=== PATIENT | male | born 2000 | race Caucasian/White ===

== ENCOUNTER 2022-11-12 10:00 | Inpatient (IN) | payer OTHER ==
[~2022-11-12] VITALS: Ht 177.8 cm; Wt 69.2 kg
[2022-11-12] VITALS (48 sets, daily range): BP systolic 111–148; BP diastolic 51–94; TEMP 98.3–99.5; O2SAT 96–100
[2022-11-12] MEDS ORDERED: METOCLOPRAMIDE INJ 10MG/2ML VIAL IV ONE (10:10)
[2022-11-12] MEDS ORDERED: ISOVUE-370 76% 100ML VIAL As Ordered ONE (10:15)
[2022-11-12 10:43] LABS: BASO # 0.1 10^3/uL (0.0-0.2); BASO % 0.5 % (0.0-1.0); EOS % 0.1 % (0.0-3.0); HEMATOCRIT 45.9 % (42.0-52.0); HEMOGLOBIN 15.8 g/dl (13.5-17.5); LYMPH # 1.8 10^3/uL (1.5-5.0); MEAN CORPUSCULAR HEMOGLOBIN 29.5 pg (27.0-33.0); MEAN CORPUSCULAR HGB CONC 34.4 g/dl (32.0-36.5); MEAN CORPUSCULAR VOLUME 85.8 fl (80.0-96.0); MONO # 0.5 10^3/uL (0.0-0.8); MONO % 4.6 % (2.0-8.0); NEUTROPHILS # 7.7 10^3/uL (1.5-8.5); NEUTROPHILS % 76.5 % (36.0-66.0); PLATELET COUNT, AUTOMATED 271 10^3/uL (150-450); RED BLOOD COUNT 5.35 10^6/uL (4.30-6.10); WHITE BLOOD COUNT 10.1 10^3/uL (4.0-10.0)
[2022-11-12 10:53] LABS: INR 1.02; PROTHROMBIN TIME 13.6 SECONDS (12.5-14.5)
[2022-11-12 10:54] LABS: PARTIAL THROMBOPLASTIN TIME 29.5 SECONDS (24.8-34.2)
[2022-11-12 11:03] LABS: CK-MB VALUE MASS < 1.0 NG/ML (<3.6)
[2022-11-12 11:04] LABS: CPK CREATINE PHOSPHOKINASE 99 U/L (46-171); MB/CK RELATIVE INDEX 1.01 (< OR =4)
[2022-11-12] MEDS ORDERED: ASPIRIN 325 MG TAB PO ONE ×2 (13:45→14:35)
[2022-11-12] MEDS ORDERED: NS 1,000 ML IV ONE (14:10)
[2022-11-12] MEDS ORDERED: NS 1,000 ML IV SCH (14:35)
[2022-11-12] MEDS ORDERED: HOME MED LIST COMPLETE! XX SCH (14:45)
[2022-11-12] MEDS: CLOPIDOGREL 75 MG TAB PO SCH (15:14)
[2022-11-12 18:25] LABS: HEMOGLOBIN A1c 5.3 % (4.0-6.0)
[2022-11-12 18:32] LABS: CK-MB VALUE MASS < 1.0 NG/ML (<3.6)
[2022-11-12 18:33] LABS: BLOOD UREA NITROGEN 9 MG/DL (9-23); C REACTIVE PROTEIN QUANTITATIV < 0.40 MG/DL (<1.0); CALCIUM LEVEL 9.9 MG/DL (8.5-10.1); CARBON DIOXIDE LEVEL 27 MMOL/L (20-31); CHLORIDE LEVEL 104 MMOL/L (98-107); CPK CREATINE PHOSPHOKINASE 91 U/L (46-171); GLOMERULAR FILTRATION RATE > 60.0 (>60); GLUCOSE, FASTING 99 MG/DL (60-100); MB/CK RELATIVE INDEX 1.09 (< OR =4); POTASSIUM SERUM 4.2 MMOL/L (3.5-5.1); SODIUM LEVEL 140 MMOL/L (136-145)
[2022-11-12 18:34] LABS: RHEUMATOID FACTOR QUANT < 3.5 IU/ML (<14)
[2022-11-12 18:35] LABS: THYROID STIMULATING HORMONE 3.035 uIU/ML (0.55-4.78)
[2022-11-12 18:36] LABS: FREE T4 1.24 NG/DL (0.89-1.76)
[2022-11-12] MEDS ORDERED: PHENYLEPHRINE 10MG/ML 1ML VIAL As Ordered ONE (18:46)
[2022-11-12] MEDS ORDERED: PHENYLEPHRINE HCL INJ 50 MG in D5W 500 ML IV SCH ×2 (18:50→19:00)
[2022-11-12] MEDS: ATORVASTATIN 20 MG TAB PO SCH (21:00)
[2022-11-12] MEDS: CHLORHEXIDINE GLUCONATE 0.12 % 15ML UDC (PERIDEX ORAL RINSE) MT SCH (21:25)
[2022-11-12] MEDS ORDERED: HEPARIN SOD (PORCINE) 5000UNITS/ML 1ML VIAL/SYRINGE SQ SCH (22:00)
[2022-11-12] MEDS: NS 1,000 ML IV SCH (23:25)
[2022-11-13] VITALS (91 sets, daily range): BP systolic 107–173; BP diastolic 54–109; TEMP 98.8–100.6; O2SAT 87–100
[2022-11-13] MEDS: NS 1,000 ML IV SCH ×4 (00:58→18:22)
[2022-11-13] MEDS: PHENYLEPHRINE HCL INJ 50 MG in D5W 500 ML IV SCH ×2 (02:25→09:00)
[2022-11-13] MEDS ORDERED: ONDANSETRON 4MG 2ML VIAL IV PRN (05:30)
[2022-11-13 06:09] LABS: BASO # 0.1 10^3/uL (0.0-0.2); BASO % 0.5 % (0.0-1.0); EOS % 0.1 % (0.0-3.0); HEMATOCRIT 47.4 % (42.0-52.0); HEMOGLOBIN 16.3 g/dl (13.5-17.5); LYMPH # 3.6 10^3/uL (1.5-5.0); LYMPH % 27.1 % (24.0-44.0); MEAN CORPUSCULAR HEMOGLOBIN 29.9 pg (27.0-33.0); MEAN CORPUSCULAR HGB CONC 34.4 g/dl (32.0-36.5); MEAN CORPUSCULAR VOLUME 86.8 fl (80.0-96.0); MONO # 1.1 10^3/uL (0.0-0.8); MONO % 8.2 % (2.0-8.0); NEUTROPHILS # 8.5 10^3/uL (1.5-8.5); NEUTROPHILS % 63.5 % (36.0-66.0); PLATELET COUNT, AUTOMATED 400 10^3/uL (150-450); RED BLOOD COUNT 5.46 10^6/uL (4.30-6.10); WHITE BLOOD COUNT 13.4 10^3/uL (4.0-10.0)
[2022-11-13 06:17] LABS: ALBUMIN 4.3 G/DL (3.2-5.2); ALKALINE PHOSPHATASE 86 U/L (46-116); ALT/SGPT 12 U/L (7.0-40); AST/SGOT 9 U/L (<34); BILIRUBIN,TOTAL 1.2 MG/DL (0.3-1.2); BLOOD UREA NITROGEN 8 MG/DL (9-23); CALCIUM LEVEL 9.8 MG/DL (8.5-10.1); CARBON DIOXIDE LEVEL 26 MMOL/L (20-31); CHLORIDE LEVEL 106 MMOL/L (98-107); CK-MB VALUE MASS < 1.0 NG/ML (<3.6); CPK CREATINE PHOSPHOKINASE 90 U/L (46-171); CREATININE FOR GFR 0.92 MG/DL (0.70-1.30); GLOMERULAR FILTRATION RATE > 60.0 (>60); GLUCOSE, FASTING 114 MG/DL (60-100); MAGNESIUM LEVEL 1.8 MG/DL (1.8-2.4); MB/CK RELATIVE INDEX 1.11 (< OR =4); POTASSIUM SERUM 4.6 MMOL/L (3.5-5.1); SODIUM LEVEL 138 MMOL/L (136-145); TOTAL PROTEIN 7.6 G/DL (5.7-8.2)
[2022-11-13] MEDS: PHENYLEPHRINE HCL INJ 50 MG in D5W 495 ML IV SCH ×4 (08:30→23:29)
[2022-11-13] MEDS: CHLORHEXIDINE GLUCONATE 0.12 % 15ML UDC (PERIDEX ORAL RINSE) MT SCH (09:00)
[2022-11-13] MEDS: CLOPIDOGREL 75 MG TAB PO SCH (10:13)
[2022-11-13] MEDS: ATORVASTATIN 20 MG TAB PO SCH (10:13)
[2022-11-13] MEDS: ASPIRIN 81MG CHEW TABLET PO SCH (10:13)
[2022-11-13] MEDS ORDERED: PHENYLEPHRINE HCL INJ 50 MG in D5W 495 ML IV SCH (15:02)
[2022-11-13] MEDS ORDERED: MIDAZOLAM 5MG/ML 1ML VIAL IV SCH (16:30)
[2022-11-13] MEDS ORDERED: fentaNYL 100 MCG/2 ML INJECTION IV ONE (16:30)
[2022-11-13] MEDS ORDERED: CETACAINE SPRAY 5GM TOP ONE (16:30)
[2022-11-13] MEDS ORDERED: LIDOCAINE VISCOUS 2% SOLN 15ML UDC MT ONE (16:55)
[2022-11-14] VITALS (63 sets, daily range): BP systolic 98–170; BP diastolic 55–122; TEMP 98.1–99.6; O2SAT 85–99
[2022-11-14] MEDS: PHENYLEPHRINE HCL INJ 50 MG in D5W 495 ML IV SCH ×6 (00:05→22:15)
[2022-11-14] MEDS: NS 1,000 ML IV SCH ×3 (02:27→18:06)
[2022-11-14 06:05] LABS: BASO # 0.1 10^3/uL (0.0-0.2); BASO % 0.7 % (0.0-1.0); EOS # 0.1 10^3/uL (0.0-0.5); EOS % 0.8 % (0.0-3.0); HEMATOCRIT 47.9 % (42.0-52.0); HEMOGLOBIN 16.9 g/dl (13.5-17.5); LYMPH # 2.8 10^3/uL (1.5-5.0); LYMPH % 23.4 % (24.0-44.0); MEAN CORPUSCULAR HEMOGLOBIN 30.2 pg (27.0-33.0); MEAN CORPUSCULAR HGB CONC 35.3 g/dl (32.0-36.5); MEAN CORPUSCULAR VOLUME 85.7 fl (80.0-96.0); MONO # 1.3 10^3/uL (0.0-0.8); MONO % 10.4 % (2.0-8.0); NEUTROPHILS # 7.8 10^3/uL (1.5-8.5); NEUTROPHILS % 64.3 % (36.0-66.0); PLATELET COUNT, AUTOMATED 348 10^3/uL (150-450); RED BLOOD COUNT 5.59 10^6/uL (4.30-6.10); WHITE BLOOD COUNT 12.1 10^3/uL (4.0-10.0)
[2022-11-14 06:59] LABS: ALBUMIN 4.5 G/DL (3.2-5.2); ALKALINE PHOSPHATASE 87 U/L (46-116); ALT/SGPT 15 U/L (7.0-40); AST/SGOT 15 U/L (<34); BILIRUBIN,TOTAL 1.8 MG/DL (0.3-1.2); BLOOD UREA NITROGEN 7 MG/DL (9-23); CALCIUM LEVEL 9.3 MG/DL (8.5-10.1); CARBON DIOXIDE LEVEL 25 MMOL/L (20-31); CHLORIDE LEVEL 106 MMOL/L (98-107); CHOLESTEROL LEVEL 113 MG/DL (<200); CHOLESTEROL RISK RATIO 2.44 (<5); CREATININE FOR GFR 0.83 MG/DL (0.70-1.30); GLOMERULAR FILTRATION RATE > 60.0 (>60); GLUCOSE, FASTING 122 MG/DL (60-100); HDL CHOLESTEROL 46.3 MG/DL (>40); LDL CHOLESTEROL 50.7 MG/DL (<100); MAGNESIUM LEVEL 1.9 MG/DL (1.8-2.4); NON-HDL-C 66.7 MG/DL; SODIUM LEVEL 140 MMOL/L (136-145); TOTAL PROTEIN 7.7 G/DL (5.7-8.2); TRIGLYCERIDES LEVEL 80 MG/DL (<150)
[2022-11-14] MEDS: ATORVASTATIN 20 MG TAB PO SCH (08:15)
[2022-11-14] MEDS: CLOPIDOGREL 75 MG TAB PO SCH (08:15)
[2022-11-14] MEDS: ASPIRIN 81MG CHEW TABLET PO SCH (08:15)
[2022-11-15] VITALS (78 sets, daily range): BP systolic 63–172; BP diastolic 29–102; TEMP 97.5–99; O2SAT 98–99
[2022-11-15] MEDS: PHENYLEPHRINE HCL INJ 50 MG in D5W 495 ML IV SCH ×2 (02:55→08:59)
[2022-11-15 06:16] LABS: BASO # 0.1 10^3/uL (0.0-0.2); BASO % 0.8 % (0.0-1.0); EOS # 0.1 10^3/uL (0.0-0.5); EOS % 1.1 % (0.0-3.0); HEMATOCRIT 49.7 % (42.0-52.0); HEMOGLOBIN 17.4 g/dl (13.5-17.5); LYMPH % 25.4 % (24.0-44.0); MEAN CORPUSCULAR HEMOGLOBIN 29.9 pg (27.0-33.0); MEAN CORPUSCULAR VOLUME 85.4 fl (80.0-96.0); MONO % 8.6 % (2.0-8.0); NEUTROPHILS # 7.6 10^3/uL (1.5-8.5); NEUTROPHILS % 63.6 % (36.0-66.0); PLATELET COUNT, AUTOMATED 374 10^3/uL (150-450); RED BLOOD COUNT 5.82 10^6/uL (4.30-6.10); WHITE BLOOD COUNT 11.9 10^3/uL (4.0-10.0)
[2022-11-15 06:35] LABS: ALBUMIN 4.6 G/DL (3.2-5.2); ALKALINE PHOSPHATASE 95 U/L (46-116); ALT/SGPT 22 U/L (7.0-40); AST/SGOT 18 U/L (<34); BILIRUBIN,TOTAL 2.1 MG/DL (0.3-1.2); BLOOD UREA NITROGEN 9 MG/DL (9-23); CALCIUM LEVEL 9.6 MG/DL (8.5-10.1); CARBON DIOXIDE LEVEL 28 MMOL/L (20-31); CHLORIDE LEVEL 103 MMOL/L (98-107); CREATININE FOR GFR 0.97 MG/DL (0.70-1.30); GLOMERULAR FILTRATION RATE > 60.0 (>60); GLUCOSE, FASTING 107 MG/DL (60-100); MAGNESIUM LEVEL 1.8 MG/DL (1.8-2.4); POTASSIUM SERUM 4.3 MMOL/L (3.5-5.1); SODIUM LEVEL 139 MMOL/L (136-145); TOTAL PROTEIN 7.8 G/DL (5.7-8.2)
[2022-11-15] MEDS: CLOPIDOGREL 75 MG TAB PO SCH (08:59)
[2022-11-15] MEDS: ATORVASTATIN 20 MG TAB PO SCH (08:59)
[2022-11-15] MEDS: ASPIRIN 81MG CHEW TABLET PO SCH (08:59)
[2022-11-15] MEDS: NS 1,000 ML IV SCH (14:28)
[2022-11-16 09:18] LABS: DRVV SCREEN 43.4 SEC
[2022-11-16 09:34] LABS: PTT LUPUS TYPE ANTICOAG SCREEN 1.2 (0-1.2)
[2022-11-16 09:46] LABS: DRVV CONFIRM 36.3 SEC
[2022-11-16 09:52] LABS: NORMALIZED RATIO 1.2 (0.00-1.20)
[2022-11-19 13:07] LABS: ANA (HEP2) Negative (.); ANCA-ATYPICAL <1:20 titer (Neg:<1:20); ANTI THROMBIN 3 ANTIGEN IMMUNO 93 % (72-124); ANTI THROMBIN 3 FUNCT ACTIVITY 118 % (75-135); ANTINUCLEAR ANTIBODIES DIRECT Negative (Negative); CARDIOLIPIN IGA ANTIBODY <9 APL U/mL (0-11); CARDIOLIPIN IGG ANTIBODY <9 GPL U/mL (0-14); CARDIOLIPIN IGM ANTIBODY <9 MPL U/mL (0-12); F8 ACTIVITY FOR F8 PANEL 145 % (56-140); F8 ACTIVITY vWB FOR F8 PANEL 138 % (50-200); F8 ANTIGEN FOR F8 PANEL 162 % (50-200); PERINUCLEAR AB ANCA-P <1:20 titer (Neg:<1:20); PROTEIN C ANTIGEN 79 % (60-150); PROTEIN S ANTIGEN FREE 115 % (61-136); PROTEIN S ANTIGEN TOTAL 103 % (60-150); SJOGREN'S ANTI SS-A <0.2 AI (0.0-0.9); SJOGREN'S ANTI SS-B <0.2 AI (0.0-0.9)
[2022-11-20 06:08] LABS: HEXAGONAL PHASE PHOSPHOLIPID 5 sec (0-11)
== END 2022-11-15 17:44 | disposition short-term general hospital (02) | DRG 65 ==
LOC: M ED 10:00 → M ICU 15:29 → ENRESERV 15:45
PROVIDERS: ADMIT Internal Medicine; ATTEND Internal Medicine
PROC: B246ZZ4 Ultrasonography of Right and Left Heart, Transesophageal (ICD-10-PCS; principal; 2022-11-13)
DX: I63.512 Cerebral infarction due to unspecified occlusion or stenosis of left middle cerebral artery (principal); Q21.12 Patent foramen ovale; R47.01 Aphasia; G43.909 Migraine, unspecified, not intractable, without status migrainosus; E04.1 Nontoxic single thyroid nodule

== ENCOUNTER 2022-12-12 12:27 | Outpatient (RCR) | payer OTHER | END 2022-12-31 | LOC: M ST 12:27 | PROVIDERS: ATTEND Physician Assistant Medical | DX: I63.9 Cerebral infarction, unspecified (principal) ==

== ENCOUNTER 2023-01-08 09:31 | Outpatient (RCR) | payer OTHER | END 2023-01-31 | LOC: M ST 09:31 | DX: I63.9 Cerebral infarction, unspecified (principal); R47.01 Aphasia ==

== ENCOUNTER 2023-03-13 09:58 | Outpatient (RCR) | payer OTHER ==
[2023-03-21] MEDS ORDERED: ASPI-164 (17:24)
[2023-03-21] MEDS ORDERED: CLOP75TA2 (17:24)
[2023-03-21] MEDS ORDERED: ATOR40TA75 (17:24)
== END 2023-04-02 ==
LOC: M ST 09:58
DX: I63.9 Cerebral infarction, unspecified (principal); R47.01 Aphasia